=== PATIENT | male | born 1960 | race Caucasian/White ===

== ENCOUNTER 2018-06-18 22:41 | Emergency (ER) | payer BC ==
[2018-06-18 23:05] VITALS: BP 168/97
[2018-06-18] MEDS: Ondansetron 4 MG/2 ML SDV IVPUSH ONE (23:34)
[2018-06-19] MEDS: Iohexol 300 MG/ML 30 ML Bottle ONE (00:06)
[2018-06-19] MEDS: Iohexol 647 MG/ML 10 ML SDV PO ONE (00:07)
[2018-06-19] MEDS: Lactated Ringers 1,000 ML IV ONE (00:17)
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
[2018-06-19] MEDS: Iopamidol 612 MG/ML 150 ML Bottle IV STA (01:46)
--- NOTE | 2018-06-19 02:23 | CRLCT ---
INDICATION: Abdominal pain and dissection. Prior exploratory laparotomy and colostomy with reversal TECHNIQUE: CT abdomen and pelvis acquired with IV contrast. 150 cc Isovue-300 COMPARISON: None FINDINGS: Lower chest: Unremarkable. Liver: Back steatosis. Spleen: Unremarkable. Pancreas: Unremarkable. Gallbladder and bile ducts: Unremarkable. Kidneys: Unremarkable. Adrenal glands: Unremarkable. GI tract: Unremarkable. History of appendectomy. Vascular structures: Unremarkable. Lymph nodes: Unremarkable. Miscellaneous: Small bowel mesenteric fat stranding most likely representing nonspecific mesenteritis. No free air or significant free fluid. Pelvic Organs: Prostatomegaly. Bones: Unremarkable for age. IMPRESSION: Small bowel mesenteric fat stranding most likely representing nonspecific mesenteritis. Hepatic steatosis. Prostatomegaly. History of appendectomy. Dictated by Jl Fischer MD @ 06/19/2018 2:22:29 AM Please note that all CT scans at this facility use dose modulation, iterative reconstruction, and/or weight-based dosing when appropriate to reduce radiation dose to as low as reasonably achievable. Dictated by: Jl Fischer MD @ 06/19/2018 02:22:34 (Electronically Signed)
== END 2018-06-19 03:32 | disposition home or self-care (01) ==
LOC: JP.ED 22:41
DX: R14.0 Abdominal distension (gaseous) (principal); R11.0 Nausea; Z90.49 Acquired absence of other specified parts of digestive tract
CPT/HCPCS: 36415; 74177; 80053; 83690; 85027; 96361; 96374; 99284; J2405; J7030; J7120; Q9965